=== PATIENT | female | born 1985 | race Two or more races ===

== ENCOUNTER → 2016-11-06 | Outpatient (CLI) | payer MEDICAID ==
[2016-11-06 15:49] LABS: HEMOGLOBIN 11.9 g/dL (12.2-16.2); LYMPH # 3.2 K/mm3 (0.7-4.5); LYMPH % 28.1 % (10-50.0)
[2016-11-06 16:22] LABS: BUN 10 mg/dL (7-18)
[2016-11-06 16:38] LABS: GFR (ESTIMATED) 73 ML/MIN (59-)
== END ==
LOC: LAB 15:11
PROVIDERS: Surgery
DX: K81.1 Chronic cholecystitis (principal)